=== PATIENT | male | born 1945 | race Caucasian/White ===

== ENCOUNTER 2023-04-21 12:54 | Outpatient (CLI) | payer MEDICARE, MEDICAID, SELFPAY ==
--- NOTE | 2023-04-21 13:19 | US_ITS ---
WS: [id number] RENAL ULTRASOUND HISTORY: STAGE 3B CHRONIC KIDNEY DZ COMPARISON: None available. TECHNIQUE: 2-D and color Doppler imaging of the kidney submitted. Right kidney: 10.7 cm x 6.0 cm x 5.6 cm. Cortex: 1.7 cm Normal size kidney. Upper pole cyst measures 2.2 x 2.3 x 2.7 cm. Smaller exophytic cyst from the mid kidney measures 1.3 x 1.4 x 0.9 cm. Left kidney: 11.5 cm x 4.9 cm x 6.2 cm. Cortex: 1.3 cm Normal size kidney echogenicity. Exophytic cyst from the superior kidney measures 1.5 x 1.8 x 1.4 cm. Aorta: Normal. Urinary Bladder: Normal distention. Mild prostate gland heterogeneity and enlargement measuring 4.3 x 5.2 x 3.6 cm. US/US renal BI* [id number] IMPRESSION: 1. Normal size kidneys with no hydronephrosis. 2. Bilateral renal cysts.
== END 2023-04-21 12:55 | disposition home or self-care (01) ==
PROVIDERS: PCP Physician Assistant; Visit Provider Internal Medicine Nephrology
DX: N18.32 Chronic kidney disease, stage 3b (principal); N28.1 Cyst of kidney, acquired
CPT/HCPCS: 76770

== ENCOUNTER → 2023-08-10 08:01 | Outpatient (BNVA) | payer MEDICARE, MEDICAID, SELFPAY | PROVIDERS: PCP Physician Assistant; Visit Provider Podiatrist Foot & Ankle Surgery | DX: B35.1 Tinea unguium (principal); G62.9 Polyneuropathy, unspecified; N18.9 Chronic kidney disease, unspecified; E11.42 Type 2 diabetes mellitus with diabetic polyneuropathy; E11.22 Type 2 diabetes mellitus with diabetic chronic kidney disease | CPT/HCPCS: 11721; 99203 ==

== ENCOUNTER → 2023-10-18 07:55 | Outpatient (BNVA) | payer MEDICARE, MEDICAID, SELFPAY | PROVIDERS: PCP Physician Assistant; Visit Provider Podiatrist Foot & Ankle Surgery | DX: B35.1 Tinea unguium (principal); G62.9 Polyneuropathy, unspecified; N18.9 Chronic kidney disease, unspecified; E11.42 Type 2 diabetes mellitus with diabetic polyneuropathy; E11.22 Type 2 diabetes mellitus with diabetic chronic kidney disease; Z79.84 Long term (current) use of oral hypoglycemic drugs | CPT/HCPCS: 11721 ==

== ENCOUNTER 2023-11-30 16:42 | Emergency (ER) | payer MEDICARE, MEDICAID, SELFPAY ==
[2023-11-30 16:45] VITALS: BP 140/46; PULSE 90; RESP 16; TEMP 36.7; O2SAT 95; BMI 30.7
--- NOTE | 2023-11-30 16:49 | XRR_ITS ---
PROCEDURE INFORMATION: Exam: XR Chest Exam date and time: 11/30/2023 4:53 PM Age: 78 years old Clinical indication: Shortness of breath; Additional info: SOB TECHNIQUE: Imaging protocol: Radiologic exam of the chest. Views: 1 view. COMPARISON: No relevant prior studies available. FINDINGS: Lungs: Unremarkable. No consolidation. Pleural spaces: Unremarkable. No pleural effusion. No pneumothorax. Heart/Mediastinum: Unremarkable. No cardiomegaly. Bones/joints: Unremarkable. XR/XR chest 1V portable [id number] IMPRESSION: No acute findings.
--- NOTE | 2023-11-30 16:49 | CTR_ITS ---
PROCEDURE INFORMATION: Exam: CT Head Without Contrast Exam date and time: 11/30/2023 6:06 PM Age: 78 years old Clinical indication: Altered mental status/memory loss; Additional info: AMS TECHNIQUE: Imaging protocol: Computed tomography of the head without contrast. Radiation optimization: All CT scans at this facility use at least one of these dose optimization techniques: automated exposure control; mA and/or kV adjustment per patient size (includes targeted exams where dose is matched to clinical indication); or iterative reconstruction. COMPARISON: No relevant prior studies available. RADIATION DOSE METRICS: Total DLP (mGy-cm): 1147 FINDINGS: Brain: Moderate diffuse white matter disease likely reflecting chronic microvascular ischemic changes. Cerebral ventricles: No ventriculomegaly. Paranasal sinuses: Paranasal sinus opacifications. Mastoid air cells: Visualized mastoid air cells are well aerated. Bones/joints: Unremarkable. No acute fracture. Soft tissues: Unremarkable. CT/CT head wo con* [id number] IMPRESSION: 1. Negative for intracranial hemorrhage or mass effect. 2. Moderate diffuse white matter disease likely reflecting chronic microvascular ischemic changes. 3. Paranasal sinus opacifications.
--- NOTE | 2023-11-30 16:50 | ECG_ITS ---
[facility] Test Date: 2023-11-30 Pat Name: Roni Johnson Department: Room: Gender: Male Pharmacy Delivery Driver: : [id number] Requested By: Karen Rosales Order Number: [id number] Reading MD: Josh Vanessa M.D. Measurements Intervals [place] Rate: 91 P: 40 MS: 180 QRS: 3 QRSD: 94 T: 95 QT: 368 QTc: 454 Interpretive Statements SINUS RHYTHM WITH OCCASIONAL VENTRICULAR PREMATURE COMPLEXES NONSPECIFIC ST & T-WAVE ABNORMALITY No previous ECG available for comparison Electronically Signed On 11-30-2023 19:38:51 SPA THERAPIST by Josh Vanessa M.D. [id number]
[2023-11-30 17:06] LABS: Basophils % 0.2 %; Eosinophils % 0.2 %; Hematocrit 29.5 % (37-53); Lymphocytes # 1.5 10^3/uL (0.8-4.8); Lymphocytes % 10.9 %; Mean Corpuscular HGB Conc 32.2 g/dL (30-55); Mean Corpuscular Hemoglobin 28.7 pg (27-33); Mean Corpuscular Volume 89.1 fl (82-101); Mean Platelet Volume 9.6 fL (7.4-10.4); Monocytes % 7.2 %; Nucleated Red Blood Cells % 0 %; Platelet Count 247 10^3/cmm (157-399); Red Blood Count 3.31 10^6/uL (3.85-5.65); Red Cell Distribution Width 13.4 % (12.1-15.1); White Blood Count 14.08 10^3/uL (3.29-11.43)
[2023-11-30 17:08] LABS: ABG PCO2 39.9 mmHg (35-45); ABG PH Result 7.34 (7.35-7.45); Base Excess ABG -3.9 mmol/L (-2.0-2.0); Blood Gas Allen Test Pos; Blood Gas Operator Identificat CAK; Blood Gas Sample Site Radial, left; Blood Gas Sample Type Arterial; HCO3 ABG 21.6 mmol/L (22-26); Oxygen Device ROOM AIR; PO2 FiO2 Ratio Arterial Blood 0
[2023-11-30 17:16] VITALS: BP 129/58; PULSE 98; O2SAT 91
--- NOTE | 2023-11-30 17:18 | ED_ITS ---
HPI - SOB/Dyspnea 2 General: Chief Complaint: Shortness of Breath/Dyspnea Stated Complaint: AMS, SOB Time Seen by Provider: 11/30/23 16:43 Source: patient and EMS Mode of arrival: EMS Limitations: no limitations History of Present Illness: HPI Narrative: 78-year-old male is here by EMS states t hat over the last 2 to 3 days had some slight dyspnea with exertion lives in a trailer alone he has friends that he lives close to that called EMS because they state he has been confused here he is answering all my questions appropriately knows the year the president where he is and all his medical history denies any cough denies any fever denies any pain. Associated symptoms: Deny abdominal pain, chest pain, fever(s), nausea or vomiting Review of Systems 2 Const: Denies: fever(s), chills, body aches or change in appetite ENMT: Denies: throat pain or dental pain Card: Denies: chest pain Resp: Reports: dyspnea GI: Denies: abdominal pain, nausea, vomiting or diarrhea : Denies: dysuria Musc: Denies: neck pain or back pain Skin/Breast: Denies: rash Neuro: Denies: headache(s) Psych: Denies: depression Physical Exam 2 Const: COMMON NORMALS: patient oriented x3 HENMT: COMMON NORMALS: normocephalic and atraumatic HEAD & SCALP: n ormocephalic and atraumatic Eye: COMMON NORMALS: Equal, round and reactive pupils present and EOMs intact bilaterally PUPIL: Yes Equal, round and reactive pupils present Neck/C-Spine: COMMON NORMALS: full ROM and supple Chest: COMMONS NORMALS: normal inspection of the chest and normal palpation of entire chest wall Resp: COMMON NORMALS: normal respiratory effort, No retractions, No use of accessory muscles and clear to auscultation bilaterally AUSCULTATION: clear to auscultation bilaterally Cardio: COMMON NORMALS: regular rate, regular rhythm and No murmurs present (Cardio) RATE: regular rate RHYTHM: regular rhythm GI: COMMON NORMALS: Normal to inspection, nondistended, normoactive bowel sounds present, Soft to palpation, non-tender and no masses PALPATION: Yes Soft to palpation Extremity: COMMON NORMALS: normal to inspection and full ROM Neuro: COMMON NORMALS: patient oriented x3, moves all extremities and no focal motor deficits Psych: COMMON NORMALS: mental status grossly normal, Normal thought process present and cooperative THOUGHT PROCESS: Normal thought process present Skin: COMMON NORMALS: no rashes or lesions noted and no wounds GENERAL SKIN EXAM: no rashes or lesions noted Course 2 Vital Signs: Vital signs: Vital Signs Temperature 98.1 F 11/30/23 16:45 Pulse Rate 87 11/30/23 19:25 Respiratory Rate 16 11/30/23 16:45 Blood Pressure 144/62 11/30/23 19:25 Pulse Oximetry 98 11/30/23 19:25 Oxygen Delivery Me thod Room Air 11/30/23 16:45 MDM - SOB/Dyspnea Medical Decision Making Patient presents here with shortness of breath per EMS he had been altered at home but here he is completely alert and answering all my questions appropriately blood work x-ray here normal his head CT is normal patient is requesting discharge he does not want to stay at the hospital any longer I did question again he does have medical decision-making capacity stable for discharge. Medical Records I reviewed the patient's medical records. Lab Data I reviewed the patient's lab results. 11/30/23 16:30 11/30/23 16:30 Labs/Radiology: Radiology Impressions Chest X-Ray 11/30/23 16:49 IMPRESSION: No acute findings. Head CT 11/30/23 16:49 IMPRESSION: 1. Negative for intracranial hemorrhage or mass effect. 2. Moderate diffuse white matter disease likely reflecting chronic microvascular ischemic changes. 3. Paranasal sinus opacifications. Laboratory Results WBC 14.08 10^3/uL (3.29-11.43) H 11/30/23 16:30 RBC 3.31 10^6/uL (3.85-5.65) L 11/30/23 16:30 Hgb 9.50 g/dL (11.27-16.99) L 11/30/23 16:30 Hct 29.5 % (37-53) L 11/30/23 16:30 MCV 89.1 fl (82-101) 11/30/23 16:30 MCH 28.7 pg (27-33) 11/30/23 16:30 MCHC 32.2 g/dL (30-55) 11/30/23 16:30 RDW 13.4 % (12.1-15.1) 11/30/23 16:30 Plt Count 247 10^3/cmm (157-399) 11/30/23 16:30 MPV 9.6 fL (7.4-10.4) 11/30/23 16:30 Neut % (Auto) 81.0 % 11/30/23 16:30 Lymph % (Auto) 10.9 % 11/30/23 16:30 [place] % (Auto) 7.2 % 11/30/23 16:30 Eos % (Auto) 0.2 % 11/30/23 16:30 Baso % (Auto) 0.2 % 11/30/23 16:30 Neut # (Auto) 11.40 10^3/uL (1.8-7.7) H 11/30/23 16: Lymph # (Auto) 1.5 10^3/uL (0.8-4.8) 11/30/23 16:30 [place] # (Auto) 1.0 10^3/uL (0.2-0.9) H 11/30/23 16:30 Eos # (Auto) 0.0 10^3/uL (0.0-0.8) 11/30/23 16:30 Baso # (Auto) 0.0 10^3/uL (0.0-0.1) 11/30/23 16: Nucleated RBC % (auto) 0 % 11/30/23: Nucleated RBCs # 0.0 /100WBC 11/30/23 16:30 Specimen Type Arterial 11/30/23 16:57 Sample Site Radial, left 11/30/23 16:57 ABG pH 7.34 (7.35-7.45) L 11/30/23 16:57 ABG pCO2 39.9 mmHg (35-45) 11/30/23 16:57 ABG pO2 67.0 mmHg (80.0-100.0) L 11/30/23 16:57 ABG PO2/FiO2 Ratio 0 11/30/23 16:57 ABG HCO3 21.6 mmol/L (22-26) L 11/30/23 16:57 ABG Base Excess -3.9 mmol/L (-2.0-2.0) L 11/30/23 16:57 Mitesh Test Pos 11/30/23 16:57 Hematocrit 29.0 % (42-52) L 01/16/24 16:57 O2 Delivery Device Room air 11/30/23 16:57 FiO2 21.0 % 11/30/23 16:57 Tax Services Specialist ID Cak 11/30/23 16:57 Sodium 132 mmol/L (136-145) L 11/30/23 16:30 Potassium 5.4 mmol/L (3.5-5.1) H 11/30/23 16:30 Chloride 94 mmol/L (98-107) L 11/30/23 16:30 Carbon Dioxide 22 mmol/L (22-29) 11/30/23 16:30 Anion Gap 21.4 (5-19) H 11/30/23 16:30 BUN 46 mg/dL (8-23) H 11/30/23 16:30 Creatinine 1.6 mg/dL (0.7-1.2) H 11/30/23 16:30 GFR Calculation Not Reportable 11/30/23: Glucose 152 mg/dL (65-115) H 11/30/23 16:30 Calculated Osmolality 289 mOsm/kg (285-295) 11/30/23 16:30 Calcium 8.6 mg/dL (8.5-10.5) 11/30/23 16:30 Total Bilirubin 0.3 mg/dL (0.15-1.2) 11/30/23 16:30 AST 37 U/L (0-40) 11/30/23 16:30 ALT 24 U/L (0-41) 11/30/23 16:30 Alkaline Phosphatase 74 U/L (40-130) 11/30/23 16:30 NT-Pro-B Natriuret Pep 1677 pg/mL (0-450) H 11/30/23 16:30 Total Protein 7.0 g/dL (6.6-8.7) 11/30/23 16:30 Albumin 4.0 g/dL (3.5-5.2) 11/30/23 16:30 Globulin 3.0 g/dL (1.3-4.6) 11/30/23 16:30 TSH 2.70 uIU/mL (0.27-4.20) 11/30/23 16:30 Influenza Type A Ag negative (Negative) 11/30/23 17:39 Influenza Type B Ag negative (Negative) 11/30/23 17:39 SARS-CoV-2 Ag (Rapid) negative (Negative) 11/30/23 17:39 All radiology interpretation(s) finalized by discharge EKG Data EKG 1: I personally reviewed and interpreted this EKG as follows: EKG Interpretation Date: 11/30/23 EKG interpretation time: 17:13 Interpretation: nsr hr [address] or t wave abnormalities qrs 94 qtc 417 Discharge Plan Discharge Patient Disposition: Home Clinical Impression: Dyspnea Condition: Stable Prescriptions: No Action duloxetine 60 mg capsule,delayed release(DR/EC) PO amlodipine 10 mg tablet PO risperidone 1 mg tablet PO lisinopril 20 mg tablet PO metoprolol tartrate 50 mg tablet PO simvastatin 20 mg tablet PO Januvia 50 mg tablet PO (DME) Contour Next Test Strips Strip See Rx Instructions .ROUTE .MEDSUPPLY Qty: 10 Rx Instructions: As directed (DME) lancets [Microlet Lancet] Misc See Rx Instructions .ROUTE .MEDSUPPLY Qty: 100 Rx Instructions: As directed metformin 500 mg tablet PO Discharge Orders: Discharge ED (Routine); Ordered 11/30/23 Ordered By: Karen Rosales Referrals: Ashley Kenney PA [Primary Care Provider] - 1-3 days Discharge Diet: Advance as tolerated Discharge Activity: Resume usual activity Patient Instructions: Dyspnea (ED) Coding Level of Care Code ED Engineering Teacher for Landy Sawyer
[2023-11-30 18:07] LABS: Alanine Aminotransferase 24 U/L (0-41); Alkaline Phosphatase 74 U/L (40-130); Anion Gap 21.4 (5-19); Aspartate Amino Transferase 37 U/L (0-40); Blood Urea Nitrogen 46 mg/dL (8-23); Calcium 8.6 mg/dL (8.5-10.5); Carbon Dioxide 22 mmol/L (22-29); Chloride 94 mmol/L (98-107); Glucose 152 mg/dL (65-115); Osmolality Calculated 289 mOsm/kg (285-295); Potassium 5.4 mmol/L (3.5-5.1); Sodium 132 mmol/L (136-145); Total Bilirubin 0.3 mg/dL (0.15-1.2)
[2023-11-30 18:16] LABS: Influenza A by IFA negative (Negative); Influenza B by IFA negative (Negative)
[2023-11-30 18:17] LABS: SARS Covid-2 Antigen negative (Negative)
[2023-11-30 18:58] LABS: NT Pro B Type Natriuretic Pept 1677 pg/mL (0-450)
[2023-11-30 19:25] VITALS: BP 144/62; PULSE 87; O2SAT 98
== END 2023-11-30 19:27 | disposition home or self-care (01) ==
PROVIDERS: Emergency Provider Emergency Medicine; PCP Physician Assistant
DX: R06.00 Dyspnea, unspecified (principal); Z79.84 Long term (current) use of oral hypoglycemic drugs; Z11.52 Encounter for screening for COVID-19
CPT/HCPCS: 36600; 70450; 71045; 80053; 82803; 83880; 84443; 85025; 87426; 87804; 93005; 99285